=== PATIENT | female | born 1930 | race Hispanic/Latino ===

== ENCOUNTER 2021-02-14 08:46 | Inpatient (IN) | payer OTHER ==
[2021-02-14] VITALS (10 sets, daily range): BP systolic 126–166; BP diastolic 53–93
[~2021-02-14] VITALS: Ht 160 cm; Wt 79.9 kg
[2021-02-14 09:22] LABS: ABG HCO3 14.4 mmol/L (21.0-28.0); ABG OXYGEN SATURATION 94.9 % (95.0-99.0); ABG PCO2 29 mmHg (32-45)
[2021-02-14 09:26] LABS: BASOPHILS % (AUTO) 0.1 % (0.0-5.0); LYMPHOCYTES % (AUTO) 1.2 % (21.0-51.0); MEAN CORPUSCULAR HEMOGLOBIN 22.8 pg (27.0-33.0); MEAN CORPUSCULAR HGB CONC 29.4 g/dL (32.0-36.0); MEAN CORPUSCULAR VOLUME 77.6 fL (79-99); NEUTROPHILS % (AUTO) 94.9 % (40.0-77.0); PLATELET COUNT (AUTO) 384 K/uL (130-400); RED BLOOD CELL COUNT(AUTO) 4.25 MIL/uL (4.00-5.50); RED CELL DISTRIBUTION WIDTH 16.4 % (11.0-15.5)
[2021-02-14 09:42] LABS: CREATININE 2.4 mg/dL (0.5-1.5); POTASSIUM 4.8 mmol/L (3.5-5.1)
[2021-02-14 09:48] LABS: APPEARANCE,URINE Cloudy (CLEAR); BILIRUBIN,URINE Negative (NEGATIVE); COLOR,URINE Yellow (YELLOW); GLUCOSE, URINE (UA) Negative (NEGATIVE); KETONES,URINE Negative (NEGATIVE); LEUKOCYTE ESTERASE ,URINE Small (NEGATIVE); NITRATE,URINE Negative (NEGATIVE); OCCULT BLOOD,URINE Negative (NEGATIVE); PH,URINE 5.5 (5.0-8.0); PROTEIN,URINE POS 1+ mg/dL (NEGATIVE)
[2021-02-14] MEDS ORDERED: ZOSYN 3.375GM+NS 50ML 50 ML IV ONE (09:48)
[2021-02-14 09:49] LABS: ALBUMIN 2.7 g/dL (3.5-5.0); BILIRUBIN,TOTAL 0.3 mg/dL (0.2-1.0); TOTAL PROTEIN, SERUM 7.5 g/dL (6.0-8.3)
[2021-02-14 09:56] LABS: BACTERIA,URINE Many /HPF (None Seen); RBC,URINE 0-1 /HPF (0-1); SQUAMOUS EPITHELIAL CELL,UR Few /HPF (0-2); WBC,URINE 0-1 /HPF (0-1)
[2021-02-14 09:57] LABS: B-TYPE NATRIURETIC PEPTIDE 74 pg/mL (0-100)
[2021-02-14 09:58] LABS: INR 1.11 (0.85-1.15)
[2021-02-14 09:59] LABS: PARTIAL THROMBOPLASTIN TIME 27.1 SEC (26.3-35.5)
[2021-02-14] MEDS ORDERED: 0.9%NACL 1000ML 1,572 ML IV SCH (10:00)
[2021-02-14] MEDS: ZOSYN 3.375GM+NS 50ML 50 ML IV SCH ×3 (10:02→21:38)
[2021-02-14 11:29] LABS: MAGNESIUM 2.5 mg/dL (1.80-2.40)
[2021-02-14] MEDS ORDERED: HYDROMORPHONE 0.5 MG SYG (0.5MG/0.5ML) ONE (13:54)
[2021-02-14] MEDS ORDERED: ACETAMINOPHEN 325 MG SUPPOSITORY RC PRN (14:00)
[2021-02-14] MEDS ORDERED: VANCOMYCIN PROTOCOL PER PHARMACY IV PRN (14:00)
[2021-02-14] MEDS ORDERED: 0.9%NACL 1000ML 1,000 ML IV SCH (14:00)
[2021-02-14] MEDS ORDERED: ONDANSETRON 4MG INJ IV PRN (14:00)
[2021-02-14] MEDS ORDERED: HYDROMORPHONE 0.5 MG SYG (0.5MG/0.5ML) IVP PRN ×2 (14:00)
[2021-02-14] MEDS ORDERED: PANTOPRAZOLE 40MG INJ 80 MG in 0.9%NACL 100ML 100 ML IVP SCH (14:30)
[2021-02-14] MEDS: METOPROLOL TARTRATE 1 MG/ML 5ML VIAL IV SCH ×2 (14:32→21:37)
[2021-02-14 14:46] LABS: RETICULOCYTE % (AUTO) 1.72 % (0.42-2.23)
[2021-02-14 15:15] LABS: THYROID STIMULATING HORMONE 0.86 uIU/mL (0.36-3.74)
[2021-02-14 15:16] LABS: % IRON SATURATION 5.5 % (22-44)
[2021-02-14] MEDS ORDERED: VANCOMYCIN KIT 1 GM/250 ML IV.KIT IV SCH (15:30)
[2021-02-14] MEDS ORDERED: 0.9% NACL 250ML 250 ML IV SCH (15:30)
[2021-02-14] MEDS ORDERED: PANTOPRAZOLE 40 MG/VIAL ONE (15:56)
[2021-02-14] MEDS: PANTOPRAZOLE 40MG INJ 80 MG in 0.9%NACL 100ML 100 ML IVP SCH (16:01)
[2021-02-14] MEDS: LACTATED RINGERS 1000ML 1,000 ML IV SCH (17:15)
[2021-02-14] MEDS ORDERED: FAMOTIDINE 20MG VIAL IV SCH (21:00)
[2021-02-14 21:04] LABS: HEMATOCRIT 27.8 % (36-48)
[2021-02-15] VITALS (23 sets, daily range): BP systolic 115–192; BP diastolic 55–88
[2021-02-15] MEDS: PANTOPRAZOLE 40MG INJ 80 MG in 0.9%NACL 100ML 100 ML IVP SCH (01:16)
[2021-02-15] MEDS: METOPROLOL TARTRATE 1 MG/ML 5ML VIAL IV SCH ×4 (04:05→23:24)
[2021-02-15] MEDS: LACTATED RINGERS 1000ML 1,000 ML IV SCH ×3 (04:14→21:33)
[2021-02-15] MEDS: ZOSYN 3.375GM+NS 50ML 50 ML IV SCH ×3 (04:59→21:33)
[2021-02-15 06:20] LABS: MEAN CORPUSCULAR HEMOGLOBIN 22.8 pg (27.0-33.0); MEAN CORPUSCULAR HGB CONC 29.3 g/dL (32.0-36.0); RED BLOOD CELL COUNT(AUTO) 3.46 MIL/uL (4.00-5.50); RED CELL DISTRIBUTION WIDTH 16.7 % (11.0-15.5); WHITE BLOOD COUNT (AUTO) 15.5 K/uL (4.8-10.8)
[2021-02-15 06:36] LABS: ALBUMIN 2.1 g/dL (3.5-5.0); BILIRUBIN,TOTAL 0.3 mg/dL (0.2-1.0); CREATININE 1.5 mg/dL (0.5-1.5); POTASSIUM 3.9 mmol/L (3.5-5.1); TOTAL PROTEIN, SERUM 5.6 g/dL (6.0-8.3)
[2021-02-15 09:00] LABS: HEMATOCRIT 26.4 % (36-48)
[2021-02-15] MEDS: ENOXAPARIN SODIUM 40 MG/0.4 ML SYRINGE SQ SCH ×2 (09:00→09:11)
[2021-02-15] MEDS ORDERED: FAMOTIDINE 20MG VIAL IV SCH (09:00)
[2021-02-15] MEDS ORDERED: ENOXAPARIN SODIUM 30 MG/0.3 ML SQ SCH ×2 (09:00→10:30)
[2021-02-15] MEDS: PANTOPRAZOLE 40 MG/VIAL IVP SCH ×2 (09:11→21:34)
[2021-02-15 14:09] LABS: HEMATOCRIT 26.9 % (36-48)
[2021-02-15] MEDS ORDERED: 0.9% NACL 250ML 250 ML IV SCH (15:30)
[2021-02-15] MEDS ORDERED: VANCOMYCIN 750MG VIAL IVPB SCH (15:30)
[2021-02-15] MEDS: LABETALOL 20MG VIAL IV PRN (16:22)
[2021-02-15 20:45] LABS: HEMATOCRIT 22.5 % (36-48)
[2021-02-16] VITALS (13 sets, daily range): BP systolic 104–146; BP diastolic 53–77
[2021-02-16] MEDS: METOPROLOL TARTRATE 1 MG/ML 5ML VIAL IV SCH ×2 (05:30→05:50)
[2021-02-16] MEDS: ZOSYN 3.375GM+NS 50ML 50 ML IV SCH ×3 (05:49→21:08)
[2021-02-16 07:19] LABS: BASOPHILS % (AUTO) 0.2 % (0.0-5.0); HEMATOCRIT 26.2 % (36-48); LYMPHOCYTES % (AUTO) 11.2 % (21.0-51.0); MEAN CORPUSCULAR HEMOGLOBIN 23.6 pg (27.0-33.0); MEAN CORPUSCULAR HGB CONC 30.2 g/dL (32.0-36.0); MEAN CORPUSCULAR VOLUME 78.2 fL (79-99); MONOCYTES % (AUTO) 5.7 % (3.0-13.0); NEUTROPHILS % (AUTO) 82.2 % (40.0-77.0); PLATELET COUNT (AUTO) 193 K/uL (130-400); RED BLOOD CELL COUNT(AUTO) 3.35 MIL/uL (4.00-5.50); WHITE BLOOD COUNT (AUTO) 8.2 K/uL (4.8-10.8)
[2021-02-16 07:38] LABS: CREATININE 1.3 mg/dL (0.5-1.5); POTASSIUM 3.7 mmol/L (3.5-5.1)
[2021-02-16] MEDS: LACTATED RINGERS 1000ML 1,000 ML IV SCH ×4 (08:05→22:04)
[2021-02-16] MEDS ORDERED: METOPROLOL TARTRATE 1 MG/ML 5ML VIAL IV PRN (10:30)
[2021-02-16] MEDS: PANTOPRAZOLE 40 MG/VIAL IVP SCH ×2 (10:44→21:09)
[2021-02-16] MEDS: METOPROLOL TARTRATE 25 MG TAB PO SCH ×2 (12:25→21:09)
[2021-02-16] MEDS ORDERED: POTASSIUM CHLORIDE 10% ELIXIR 20 MEQ/15 ML UDCUP PO PRN (14:00)
[2021-02-16] MEDS ORDERED: KCL 20 MEQ ERTAB PO PRN (14:00)
[2021-02-16] MEDS ORDERED: FERR-82 PO (14:47)
[2021-02-16] MEDS ORDERED: QUET25TA34 PO (14:47)
[2021-02-16] MEDS ORDERED: AMLO2.5T4 PO (14:47)
[2021-02-16] MEDS ORDERED: MULT-1296 PO (14:47)
[2021-02-17 04:00] VITALS: BP 158/60
[2021-02-17] MEDS: ZOSYN 3.375GM+NS 50ML 50 ML IV SCH ×3 (05:06→20:50)
[2021-02-17 05:29] LABS: MAGNESIUM 1.7 mg/dL (1.80-2.40); PHOSPHORUS 2.8 mg/dL (2.5-4.9)
[2021-02-17] MEDS ORDERED: MAGNESIUM 2GM PREMIX 50ML 50 ML IV PRN (06:00)
[2021-02-17 08:00] VITALS: BP 168/58
[2021-02-17] MEDS: PANTOPRAZOLE 40 MG/VIAL IVP SCH ×2 (08:25→20:50)
[2021-02-17] MEDS: METOPROLOL TARTRATE 25 MG TAB PO SCH ×2 (08:26→20:50)
[2021-02-17 12:00] VITALS: BP 141/63
[2021-02-17 16:00] VITALS: BP 169/73
[2021-02-17] MEDS: LACTATED RINGERS 1000ML 1,000 ML IV SCH (19:23)
[2021-02-17 20:00] VITALS: BP 132/70
[2021-02-17 23:52] VITALS: BP 141/58
[2021-02-18 04:16] LABS: BASOPHILS % (AUTO) 0.2 % (0.0-5.0); HEMATOCRIT 26.7 % (36-48); LYMPHOCYTES % (AUTO) 19.5 % (21.0-51.0); MEAN CORPUSCULAR HEMOGLOBIN 23.5 pg (27.0-33.0); MEAN CORPUSCULAR HGB CONC 30.3 g/dL (32.0-36.0); MEAN CORPUSCULAR VOLUME 77.6 fL (79-99); MONOCYTES % (AUTO) 6.7 % (3.0-13.0); NEUTROPHILS % (AUTO) 72.8 % (40.0-77.0); PLATELET COUNT (AUTO) 218 K/uL (130-400); RED BLOOD CELL COUNT(AUTO) 3.44 MIL/uL (4.00-5.50); RED CELL DISTRIBUTION WIDTH 17.3 % (11.0-15.5); WHITE BLOOD COUNT (AUTO) 6.5 K/uL (4.8-10.8)
[2021-02-18 04:18] VITALS: BP 155/77
[2021-02-18 04:25] LABS: CREATININE 1.5 mg/dL (0.5-1.5); POTASSIUM 3.7 mmol/L (3.5-5.1)
[2021-02-18] MEDS: ZOSYN 3.375GM+NS 50ML 50 ML IV SCH ×2 (05:05→13:19)
[2021-02-18 07:47] VITALS: BP 157/90
[2021-02-18] MEDS: METOPROLOL TARTRATE 25 MG TAB PO SCH ×2 (09:13→20:43)
[2021-02-18] MEDS: PANTOPRAZOLE 40 MG/VIAL IVP SCH ×2 (09:13→20:43)
[2021-02-18 11:13] VITALS: BP 146/80
[2021-02-18 15:58] VITALS: BP 162/61
[2021-02-18 19:50] VITALS: BP 169/77
[2021-02-18] MEDS: LACTATED RINGERS 1000ML 1,000 ML IV SCH (20:43)
[2021-02-18 23:54] VITALS: BP 170/67
[2021-02-19 03:44] LABS: BASOPHILS % (AUTO) 0.2 % (0.0-5.0); EOSINOPHILS % (AUTO) 2.6 % (0.0-8.0); HEMATOCRIT 25.6 % (36-48); LYMPHOCYTES % (AUTO) 18.5 % (21.0-51.0); MEAN CORPUSCULAR HEMOGLOBIN 23.8 pg (27.0-33.0); MEAN CORPUSCULAR HGB CONC 30.9 g/dL (32.0-36.0); MEAN CORPUSCULAR VOLUME 77.1 fL (79-99); MONOCYTES % (AUTO) 7.6 % (3.0-13.0); NEUTROPHILS % (AUTO) 70.2 % (40.0-77.0); PLATELET COUNT (AUTO) 232 K/uL (130-400); RED BLOOD CELL COUNT(AUTO) 3.32 MIL/uL (4.00-5.50); RED CELL DISTRIBUTION WIDTH 17.3 % (11.0-15.5); WHITE BLOOD COUNT (AUTO) 6.4 K/uL (4.8-10.8)
[2021-02-19 03:55] VITALS: BP 177/79
[2021-02-19] MEDS: LABETALOL 20MG VIAL IV PRN (04:00)
[2021-02-19 04:01] LABS: CREATININE 1.2 mg/dL (0.5-1.5); POTASSIUM 3.9 mmol/L (3.5-5.1)
[2021-02-19 07:51] VITALS: BP 173/65
[2021-02-19] MEDS ORDERED: PANTOPRAZOLE 40 MG TAB DR ONE (08:33)
[2021-02-19] MEDS ORDERED: PANTOPRAZOLE 40 MG TAB DR PO SCH ×2 (08:58→09:30)
[2021-02-19] MEDS ORDERED: CEFTRIAXONE 1G VIAL IVP SCH (09:00)
[2021-02-19] MEDS: METOPROLOL TARTRATE 25 MG TAB PO SCH (09:29)
[2021-02-19 11:04] VITALS: BP 157/56
== END 2021-02-19 14:39 | DRG 871 ==
LOC: EDH 08:46 → EDHIP 13:37 → EDBD 13:37 → 2DH 19:48 → 4AH 02-16 19:55
PROVIDERS: ADMIT Internal Medicine; ATTEND Internal Medicine
PROC: 0D9670Z Drainage of Stomach with Drainage Device, Via Natural or Artificial Opening (ICD-10-PCS; 2021-02-14)
PROC: 30233N1 Transfusion of Nonautologous Red Blood Cells into Peripheral Vein, Percutaneous Approach (ICD-10-PCS; principal; 2021-02-15)
DX: A41.50 Gram-negative sepsis, unspecified (principal); E43 Unspecified severe protein-calorie malnutrition; R65.21 Severe sepsis with septic shock; K56.609 Unspecified intestinal obstruction, unspecified as to partial versus complete obstruction; N39.0 Urinary tract infection, site not specified; E87.2 Acidosis; N17.9 Acute kidney failure, unspecified; E86.1 Hypovolemia; E86.0 Dehydration; I44.0 Atrioventricular block, first degree; R53.81 Other malaise; I10 Essential (primary) hypertension; B96.20 Unspecified Escherichia coli [E. coli] as the cause of diseases classified elsewhere; R19.7 Diarrhea, unspecified; D64.9 Anemia, unspecified; E11.9 Type 2 diabetes mellitus without complications; K44.9 Diaphragmatic hernia without obstruction or gangrene; Z20.822 Contact with and (suspected) exposure to COVID-19; Z68.31 Body mass index [BMI] 31.0-31.9, adult
CPT/HCPCS: 36415; 36600; 71045; 74018; 74176; 80048; 80053; 81001; 82010; 82150; 82270; 82550; 82728; 82746; 82803; 82948; 83540; 83550; 83605; 83690; 83735; 83880; 84100; 84145; 84443; 84484; 85014; 85018; 85025; 85027; 85045; 85610; 85730; 86140; 86850; 86900; 86901; 86923; 87040; 87077; 87088; 87186; 87324; 87507; 87635; 87804; 93005; 93306; 93970; 97039; 99291; C9113; C9803; G0378; J0696; J1170; J1650; J2543; J3370; J3475; J3490; J7120; P9016